=== PATIENT | male | born 1935 | race Caucasian/White ===

== ENCOUNTER 2018-07-15 08:35 | Day surgery (SDC) | payer MEDICARE, SELFPAY ==
[2018-07-04 09:06] VITALS: BMI 38.9
[2018-07-15] VITALS (9 sets, daily range): BP systolic 92–172; BP diastolic 53–80; PULSE 55–69; RESP 10–16; TEMP 35.8–36.9; O2SAT 89–99; BMI 37.1
--- NOTE | 2018-07-15 06:00 | DI.RAD.S_ITS ---
PROCEDURE: XR KNEE LT 1TO2V INDICATIONS: post op films, left knee TECHNIQUE: 2 view(s) of the knee acquired. COMPARISON: BERNADETTE Campa, XR KNEE 3 VIEWS LEFT, 10/17/2017, 11:54. Outside Film, MR, MR KNEE LEFT WITHOUT CONTRAST, 11/14/2017, 13:04. [facility], XR KNEE ARTHRITIC SERIES LT, 05/06/2018, 11:24. FINDINGS: Bones: Patient is status post medial unicondylar knee joint arthroplasty. Hardware components are in expected positions. Visualized bony structures are intact. Soft tissues: Overlying postoperative changes are noted. IMPRESSION: Knee prosthesis is in anatomic alignment. Dictated by: Eda Antonio M.D. on 07/15/2018 at 17:16 Approved by: Eda Antonio M.D. on 07/15/2018 at 17:17
[2018-07-15] MEDS: LACTATED RINGERS 1,000 ML 42 ML IV ×2 (09:24→12:49)
[2018-07-15] MEDS: CELECOXIB 200 MG CAPSULE PO (09:29)
[2018-07-15] MEDS: VANCOMYCIN 1,000 MG/200 ML FROZ.PIGGY 200 MG IV (10:00)
--- NOTE | 2018-07-15 10:53 | PM.PREOP ---
Pre-operative Note Interval Note History & Physical reviewed/Exam performed by Physician: Yes Changes to H&P: No
--- NOTE | 2018-07-15 10:54 | PM.OP.1 ---
Operative Date/Time/Diagnoses Date of procedure: 07/15/18 Time of procedure: 10:56 Pre-op diagnosis: left knee OA Post-op diagnosis: same Procedure & Clinicians Procedure: left knee medial unicompartment replacement Same procedure as scheduled: Yes Surgeon: Talita Hernandez [employer]ard Waste Handler: Reba Vega Click Yes if Unassisted: No Anesthesia Type: General Operative Notes Findings: The patient has had progressively worsening left knee pain with radiographic changes consistent with arthritis. Non-operative management has failed and the patient has requested unicompartment knee replacement. The risks, benefits and alternatives to surgery were discussed with the patient prior to proceeding. Risks discussed included, but were not limited to, failure to relieve pain, stiffness, infection, nerve damage, deep venous thrombosis, pulmonary embolism, stroke, coma, heart attack, permanent paralysis and , as well as the potential need for eventual revision of the prosthetic. Closure Type: primary Specimen(s): none sent Prosthetic devices, grafts, tissues, transplants, or devices: hernandez and nephUBmatrix ZUK femur D, Tibia 9, +9 poly Estimated Blood Loss (mL): 250 Blood products transfused: none Procedure in detail: The patient was seen in the pre-operative area, where the left knee was identified as the operative site and this was marked with my initials. The patient received pre-operative antibiotics, and was taken to the operating room and placed on the operative table in the supine position. After satisfactory anesthesia, a multimedia editor out was performed. The left leg was encircled with a tourniquet about the proximal thigh, and the leg was prepared from the toes to the tourniquet with ChloroPrep in the usual fashion and draped through sterile drapes. The leg was elevated and exsanguinated with Eschmark bandage and the tourniquet inflated to [250] mmHg pressure. The knee was approached through an approximately 10 cm incision medial parapatella incision and carried into the knee through a medial parapatellar arthrotomy. The osteophytes and medial meniscus were removed. Next, a small amount of the anterior tibial boss was carefully resected with a saw. The guide was placed along the medial joint line. It was meticulously adjusted to make sure there was appropriate slope that it was at the joint line and then was pinned to the tibia and the femur. The medial femoral condylar cut was made in extension. The tibial cut was made in flexion. The bone was meticulously irrigated with normal saline. Small amount of additional meniscus was resected posterior capsule was checked and injected with Marcaine. The extension gap was carefully checked with an 8 mm gap crew mess attendant was noted that it fit well with slight laxity. A small number of additional osteophytes were resected. The tibia was a size [4]. It was noted that it fit without overhang. The femur was sized and it was noted to be a [D]. The appropriate cutting guide was pinned into place and carefully positioned on the femoral condyle. Drill holes were placed. The tibia was pinned into place and drill holes were made. Trial reduction with the appropriate poly showed full range of motion and good stability at 0, 45. and 90? with normal tracking of the components without edge loading. The bone was meticulously irrigated and dried. Additional Marcaine was injected. The posterior capsule was injected with 0.25% Marcaine mixed with 20 ml Exparel for post-operative pain control. The remainder of this mixture was injected into the capsule and subcutaneous tissues during cement curing. Range of motion was [0-130], with good stability throughout the range. The trials were then remove. The cement was as applied and the final prosthetics placed. Excess cement was removed during and after cement curing. A brief medial compartment Betadine soak was performed. After confirming there was no extruded cement posteriorly, the final tibial insert was placed. The knee was copiously irrigated and the tourniquet deflated. Hemostasis was obtained. The capsule was closed with interrupted Vicryl. The subcutaneous tissue was closed with barbed sutures. The skin with a running 3-0 V-Lock suture and surgical glue. An Aquacel Ag dressing was applied and the patient was taken to recovery having tolerated the procedure well. Complications: none Condition: stable Disposition: same day surgery Plan for aftercare: The patient will be maintained on a standard uni knee replacement protocol with weight bearing as tolerated. The patient will receive aspirin and sequential compression devices for DVT prophylaxis. The patient will be discharged home when safe for the home environment.
--- NOTE | 2018-07-15 10:58 | P.OP_ITS ---
Operative Date/Time/Diagnoses Date of procedure: 07/15/18 Time of procedure: 10:56 Pre-op diagnosis: left knee OA Post-op diagnosis: same Procedure & Clinicians Procedure: left knee medial unicompartment replacement Same procedure as scheduled: Yes Surgeon: Talita Hernandez Immigration Consultant: Reba Vega Click Yes if Unassisted: No Anesthesia Type: General Operative Notes Findings: The patient has had progressively worsening left knee pain with radiographic changes consistent with arthritis. Non-operative management has failed and the patient has requested unicompartment knee replacement. The risks, benefits and alternatives to surgery were discussed with the patient prior to proceeding. Risks discussed included, but were not limited to, failure to relieve pain, stiffness, infection, nerve damage, deep venous thrombosis, pulmonary embolism, stroke, coma, heart attack, permanent paralysis and , as well as the potential need for eventual revision of the prosthetic. Closure Type: primary Specimen(s): none sent Prosthetic devices, grafts, tissues, transplants, or devices: hernandez and nephArt of Defence ZUK femur D, Tibia 9, +9 poly Estimated Blood Loss (mL): 250 Blood products transfused: none Procedure in detail: The patient was seen in the pre-operative area, where the left knee was identified as the operative site and this was marked with my initials. The patient received pre-operative antibiotics, and was taken to the operating room and placed on the operative table in the supine position. After satisfactory anesthesia, a maritime officer out was performed. The left leg was encircled with a tourniquet about the proximal thigh, and the leg was prepared from the toes to the tourniquet with ChloroPrep in the usual fashion and draped through sterile drapes. The leg was elevated and exsanguinated with Eschmark bandage and the tourniquet inflated to [250] mmHg pressure. The knee was approached through an approximately 10 cm incision medial parapatella incision and carried into the knee through a medial parapatellar arthrotomy. The osteophytes and medial meniscus were removed. Next, a small amount of the anterior tibial boss was carefully resected with a saw. The guide was placed along the medial joint line. It was meticulously adjusted to make sure there was appropriate slope that it was at the joint line and then was pinned to the tibia and the femur. The medial femoral condylar cut was made in extension. The tibial cut was made in flexion. The bone was meticulously irrigated with normal saline. Small amount of additional meniscus was resected posterior capsule was checked and injected with Marcaine. The e xtension gap was carefully checked with an 8 mm gap machine tool technology instructor was noted that it fit well with slight laxity. A small number of additional osteophytes were resected. The tibia was a size [4]. It was noted that it fit without overhang. The femur was sized and it was noted to be a [D]. The appropriate cutting guide was pinned into place and carefully positioned on the femoral condyle. Drill holes were placed. The tibia was pinned into place and drill holes were made. Trial reduction with the appropriate poly showed full range of motion and good stability at 0, 45. and 90? with normal tracking of the components without edge loading. The bone was meticulously irrigated and dried. Additional Marcaine was injected. The posterior capsule was injected with 0.25% Marcaine mixed with 20 ml Exparel for post-operative pain control. The remainder of this mixture was injected into the capsule and subcutaneous tissues during cement curing. Range of motion was [0-130], with good stability throughout the range. The trials were then remove. The cement was as applied and the final prosthetics placed. Excess cement was removed during and after cement curing. A brief medial compartment Betadine soak was performed. After confirming there was no extruded cement posteriorly, the final tibial insert was placed. The knee was copiously irrigated and the tourniquet deflated. Hemostasis was obtained. The capsule was closed with interrupted Vicryl. The subcutaneous tissue was closed with barbed sutures. The skin with a running 3-0 V-Lock suture and surgical glue. An Aquacel Ag dressing was applied and the patient was taken to recovery having tolerated the procedure well. Complications: none Condition: stable Disposition: same day surgery Plan for aftercare: The patient will be maintained on a standard uni knee replacement protocol with weight bearing as tolerated. The patient will receive aspirin and sequential compression devices for DVT prophylaxis. The patient will be discharged home when safe for the home environment.
[2018-07-15] MEDS: CEFAZOLIN 2 GM/100 ML FROZ.PIGGY IV (11:14)
--- NOTE | 2018-07-15 11:39 | SUR.OPER ---
Supine on padded OR bed. Pillow under head, arms secured on padded armboards <90 degree abduction. Safety belt across torso. Non-operative leg secured with tape over blanket over lower leg. Operative leg secured in DeMayo/Donny positioner. Foam padded brace at thigh of operative leg.
[2018-07-15] MEDS: BUPIVACAINE 0.25% W/ EPI 50 ML VIAL 60 ML INJ (11:44)
[2018-07-15] MEDS: BUPIVACAINE LIPOSOME 266 MG/20 ML VIAL INJ (11:45)
[2018-07-15] MEDS: TRANEXAMIC ACID 1,000 MG VIAL 1000 MG INJ ×2 (11:45→12:28)
[2018-07-15] MEDS: OXYCODONE IR 5 MG TABLET PO ×2 (14:58→15:54)
--- NOTE | 2018-07-15 16:17 | SUR.PHASEII ---
Pt stood at bedside, sba. Ambulated approx 20 feet with walker, gait steady. Pt dressed with assistance from spouse.
== END 2018-07-15 16:07 | disposition home or self-care (01) ==
PROVIDERS: Visit Provider Orthopaedic Surgery
PROC: (CPT 27446; principal; 2018-07-15 10:45)
DX: M17.12 Unilateral primary osteoarthritis, left knee (principal); G47.30 Sleep apnea, unspecified; I10 Essential (primary) hypertension; F17.210 Nicotine dependence, cigarettes, uncomplicated
CPT/HCPCS: 27446; 73560; C1776; C9290; J0690; J2250; J2405; J2704; J3010; J3370